=== PATIENT | female | born 2000 | race Caucasian/White ===

== ENCOUNTER 2023-11-22 10:20 | Emergency (ER) | payer MEDICAID, OTHER ==
[~2023-11-22] VITALS: Ht 154.9 cm; Wt 64.0 kg
[2023-11-22 10:22] VITALS: O2SAT 100
[2023-11-22 10:59] LABS: BASOPHILS % 0.2 % (0.0-2.0); DIFFERENTIAL COMMENT 0; EOSINOPHILS % 0.4 % (0.0-5.0); HEMATOCRIT. 33.3 % (36.0-48.0); HEMOGLOBIN. 10.8 g/dL (12.0-16.0); MEAN CORPUSCULAR HGB CONC 32.5 g/dL (31.0-37.0); MEAN CORPUSCULAR VOLUME 79.8 fL (81.0-99.0); MONOCYTES % 6.7 % (2.0-8.0); NEUTROPHILS % 67.7 % (40.0-76.0); PLATELET 401 x1000/uL (130-400); RED BLOOD CELL COUNT 4.17 mill/uL (4.2-5.4); RED CELL DISTRIBUTION WIDTH 14.5 % (11.6-14.6)
[2023-11-22 11:11] LABS: CLARITY URINE CLEAR (CLEAR); COLOR URINE YELLOW (YELLOW); GLUCOSE URINE NEGATIVE (NEGATIVE); KETONES URINE NEGATIVE (NEGATIVE); LEUKOCYTE ESTERASE URINE TRACE (NEGATIVE); NITRITE URINE NEGATIVE (NEGATIVE); OCCULT BLOOD URINE NEGATIVE (NEGATIVE); PROTEIN URINE NEGATIVE (NEGATIVE); SPECIFIC GRAVITY URINE 1.019 (1.005-1.030)
[2023-11-22] MEDS: SODIUM CHLORIDE 0.9% 1,000 ML IV ONE ×2 (11:18)
[2023-11-22 11:31] LABS: ALANINE AMINOTRANSFERASE 15 IU/L (10-49); ALBUMIN 3.8 g/dL (3.2-4.8); ASPARTATE AMINOTRANSFERASE 19 IU/L (<34); B-HCG QUANTITATIVE 9622 mIU/mL (<3); BILIRUBIN TOTAL 0.4 mg/dL (0.1-1.0); CARBON DIOXIDE 21 mEq/L (21-32); CHLORIDE 108 mEq/L (98-107); CREATININE 0.4 mg/dL (0.6-1.0); GLUCOSE 91 mg/dL (70-105); POTASSIUM 3.7 mEq/L (3.5-5.1); PROTEIN TOTAL 6.6 g/dL (6.0-8.3); SODIUM 136 mEq/L (136-145)
[2023-11-22 11:31] LABS: BACTERIA URINE 1+; RBC URINE 0-2 /hpf (0-2); SQUAMOUS EPITHELIAL CELL URINE 2+ /lpf (RARE/1+); YEAST URINE NONE SEEN
[2023-11-22 11:37] LABS: UREA NITROGEN BLOOD < 5 mg/dL (9-23)
[2023-11-22 12:12] VITALS: BP 115/74; PULSE 90; RESP 16; TEMP 98.2
[2023-11-22] MEDS: ACETAMINOPHEN 325MG TABLET PO ONE (12:13)
[2023-11-22] MEDS ORDERED: AMOX1TAB16 MT (12:13)
== END 2023-11-22 12:17 | disposition short-term general hospital (02) ==
LOC: ER 10:20
DX: O99.013 Anemia complicating pregnancy, third trimester (principal); Z3A.36 36 weeks gestation of pregnancy; O26.893 Other specified pregnancy related conditions, third trimester; H66.91 Otitis media, unspecified, right ear
CPT/HCPCS: 99285; 86870; 96360; 80053; 81003; 84702; 85025; 86850; 86900; 86901; 36415; 76815; J7030

== ENCOUNTER 2023-11-27 15:25 | Emergency (ER) | payer MEDICAID, OTHER ==
[~2023-11-27] VITALS: Ht 157.5 cm; Wt 79.0 kg
[~2023-11-27 15:25] MED LIST: AMOX1TAB16 MT
[2023-11-27 15:43] VITALS: BP 138/88; PULSE 99; RESP 16; TEMP 99.1; O2SAT 100
== END 2023-11-27 21:25 | disposition left against medical advice (07) ==
LOC: ER 15:25
DX: H92.09 Otalgia, unspecified ear (principal); Z53.21 Procedure and treatment not carried out due to patient leaving prior to being seen by health care provider
CPT/HCPCS: 99281